=== PATIENT | male | born 1980 | race Caucasian/White ===

== ENCOUNTER 2022-04-01 05:44 | Emergency (ER) | payer MEDICARE ==
[2022-04-01] MEDS ORDERED: NORFLEX 100 MG100 MG PO (09:27)
[2022-04-01] MEDS ORDERED: IBUPROFEN600 MG PO (09:27)
== END 2022-04-01 10:02 | disposition home or self-care (01) ==
LOC: ER1 05:44
DX: S20.212A Contusion of left front wall of thorax, initial encounter (principal); J45.909 Unspecified asthma, uncomplicated; W19.XXXA Unspecified fall, initial encounter
CPT/HCPCS: 71111; 99284